=== PATIENT | female | born 1970 | race Caucasian/White ===

== ENCOUNTER 2017-01-25 21:33 | Emergency (ER) | payer OTHER ==
[~2017-01-25] VITALS: Ht 157.5 cm; Wt 113.5 kg
[2017-01-25] MEDS ORDERED: KDUR10 PO (21:40)
[2017-01-25] MEDS ORDERED: LISI-662 PO (21:40)
[2017-01-25] MEDS ORDERED: CHOL200016 PO (21:40)
[2017-01-25] MEDS ORDERED: METF500T4 PO (21:40)
[2017-01-25] MEDS ORDERED: FURO40 PO (21:40)
[2017-01-25] MEDS ORDERED: CARV12 PO (21:40)
[2017-01-25] MEDS ORDERED: GLIP5 PO (21:40)
[2017-01-25] MEDS ORDERED: NAPR-58 PO (21:40)
[2017-01-25 21:47] LABS: GLUCOSE,POINT OF CARE 309 MG/DL (70-110)
[2017-01-25 23:05] VITALS: BP 139/77
== END 2017-01-25 23:14 | disposition home or self-care (01) ==
LOC: EMS 21:35
DX: S63.601A Unspecified sprain of right thumb, initial encounter (principal); L85.3 Xerosis cutis; I11.0 Hypertensive heart disease with heart failure; I50.9 Heart failure, unspecified; E11.9 Type 2 diabetes mellitus without complications; Z88.0 Allergy status to penicillin; X58.XXXA Exposure to other specified factors, initial encounter; Y93.89 Activity, other specified; Y92.89 Other specified places as the place of occurrence of the external cause; Y99.8 Other external cause status
CPT/HCPCS: 82962; 99284

== ENCOUNTER 2017-04-11 02:35 | Emergency (ER) | payer OTHER ==
[~2017-04-11] VITALS: Ht 157.5 cm; Wt 113.0 kg
[~2017-04-11 02:35] MED LIST: CARV12 PO; CHOL200016 PO; FURO40 PO; GLIP5 PO; KDUR10 PO; LISI-662 PO; METF500T4 PO; NAPR-58 PO
[2017-04-11 02:52] LABS: GLUCOSE,POINT OF CARE 312 MG/DL (70-110)
[2017-04-11 06:27] VITALS: BP 122/65
== END 2017-04-11 06:29 | disposition home or self-care (01) ==
LOC: EMS 02:36
DX: B86 Scabies (principal); I11.0 Hypertensive heart disease with heart failure; I50.9 Heart failure, unspecified; E11.9 Type 2 diabetes mellitus without complications; Z88.0 Allergy status to penicillin
CPT/HCPCS: 82962; 99283